=== PATIENT | female | born 1960 | race Caucasian/White ===

== ENCOUNTER 2020-12-26 08:06 | Outpatient (CLI) | payer BC, OTHER ==
--- NOTE | 2021-01-07 10:09 | Mammography Report ---
BILATERAL DIGITAL SCREENING MAMMOGRAM 3D/2D: 12/26/2020 CLINICAL: Family history of breast cancer. Routine screening. No prior exams were available for comparison. The tissue of both breasts is heterogeneously dense. T his may lower the sensitivity of mammography. No significant masses, calcifications, or other findings are seen in either breast. IMPRESSION: NEGATIVE There is no mammographic evidence of malignancy. A 1 year screening mammogram is recommended. This exam was interpreted at Station ID: [id number]. NOTE: For mammograms, a report in lay terms will be sent to the patient. Approximately 15% of breast malignancies will not be visualized mammographically. In the management of a palpable breast mass, a negative mammogram must not discourage biopsy of a clinically suspicious lesion. Electronically Signed By: Christopher Hnasen M.D. aty/:01/07/2021 08:43:14 ACR BI-RADS Category 1: Negative 3341F PARENCHYMAL PATTERN: (D) - The breast(s) demonstrate(s) heterogeneously dense fibroglandular lavelle castillo. BI-RADS CATEGORY: (1) - 1 RECOMMENDATION: (ANNUAL) - Recommend routine annual screening mammography. [id number] 1 year screening LATERALITY: (B)
== END 2020-12-26 08:07 | disposition home or self-care (01) ==
LOC: DI.N 08:06
DX: Z12.31 Encounter for screening mammogram for malignant neoplasm of breast (principal)